=== PATIENT | female | born 1960 ===

== ENCOUNTER 2021-09-01 07:10 | Day surgery (SDC) | payer OTHER ==
[~2021-09-01 07:10] MED LIST: COZAAR50 MG
[2021-09-01] MEDS ORDERED: HIBICLENS118 ML TOP (14:58)
[2021-09-01] MEDS ORDERED: PERCOCET 5-3251 EACH PO (14:58)
[2021-09-01] MEDS ORDERED: AMOX1TAB5 PO (14:59)
[2021-09-01] MEDS ORDERED: CENTANY30 GM TOP (14:59)
== END 2021-09-01 19:15 | disposition home or self-care (01) ==
LOC: CIR.AMB 07:10
PROVIDERS: ATTEND Surgery
DX: D01.3 Carcinoma in situ of anus and anal canal (principal); Z20.822 Contact with and (suspected) exposure to COVID-19